=== PATIENT | male | born 1960 | race Caucasian/White ===

== ENCOUNTER 2021-12-21 12:23 | Emergency (ER) | payer OTHER, SELFPAY ==
[~2021-12-21] VITALS: Ht 177.8 cm; Wt 86.4 kg
[2021-12-21] MEDS ORDERED: proparacaine 0.5% ophthalmic drops 15ml EACHEYE ONE (12:30)
[2021-12-21 12:36] VITALS: BP 116/89
== END 2021-12-21 13:25 | disposition left against medical advice (07) ==
LOC: ER 12:23
DX: H57.13 Ocular pain, bilateral (principal); H57.89 Other specified disorders of eye and adnexa
CPT/HCPCS: 99281; 99283

== ENCOUNTER 2022-03-26 21:00 | Emergency (ER) | payer BC ==
[~2022-03-26] VITALS: Ht 177.8 cm; Wt 86.4 kg
[2022-03-26 21:37] VITALS: BP 126/79
== END 2022-03-26 23:18 | disposition home or self-care (01) ==
LOC: ER 21:01
DX: J40 Bronchitis, not specified as acute or chronic (principal); G89.29 Other chronic pain; M54.9 Dorsalgia, unspecified
CPT/HCPCS: 93005; 99283